=== PATIENT | male | born 2005 | race African-American/Black ===

== ENCOUNTER 2025-03-25 17:32 | Emergency (ER) | payer SELFPAY ==
--- NOTE | ~2025-03-25 | XR_ITS ---
EXAMINATION: XR finger 5th RT min 2V DATE: 03/25/2025 18:14 INDICATION: Right fifth digit pain post injury TECHNIQUE: Dorsal palmar, lateral and oblique views of the right fifth digit were obtained COMPARISON: None FINDINGS: Alignment is normal. No fracture. Joint spaces are normal. Soft tissues are unremarkable. IMPRESSION: 1. Negative right fifth digit radiographs Reviewed, dictated and finalized at location A.
[2025-03-25 17:35] VITALS: BP 124/82; PULSE 106; RESP 18; TEMP 36.6; O2SAT 100
--- NOTE | 2025-03-25 19:21 | ED_ITS ---
HPI - Extremity Injury (Upper) General Chief Complaint: Extremity Injury, Upper Stated Complaint: right pinky injury Time Seen by Provider: 03/25/25 19:10 History of Present Illness HPI narrative: 19-year-old otherwise healthy male presenting with pinky injury while he was at work. Patient jammed his right 5th digit in a shopping cart while he was moving them to the store. Was able to remove his finger without significant delay, having some pain and tenderness along the 5th finger and some restricted range of motion secondary to pain. Did not take anything for pain prior to arrival. No paresthesias. No previous injuries or surgeries. Other complaints. Related Data Allergies Allergy/AdvReac Type Severity Reaction Status Date / Time No Known Allergies Allergy Verified 03/25/25 17:37 Review of Systems Review of Systems: As reviewed above in HPI Exam Narrative: GENERAL: [Well-appearing, well-nourished, and in no acute distress.] HEAD: [Normocephalic, atraumatic.] EYES: [PERRLA and EOMI.] ENT: Nares clear, no rhinorrhea or epistaxis. Mucous membranes moist. NECK: Supple. CHEST: Symmetric chest rise, no labored breathing HEART: Warm extremity, good radial pulses, good cap refill in each digit EXTREMITIES: No swelling or deformity to the pinky. Flexion at the PIP MCP and the IP joint limited secondary to pain but no swelling. No overlying skin discoloration or rashes. No lacerations. No crepitus with palpation. Able to hold extensor mechanism of the pinky without difficulty. SKIN: Warm, dry, no rash. NEURO: [No focal deficits]. Alert and oriented [x3.] Course Vital Signs Vital signs: Vital Signs Temperature 36.6 C 03/25/25 17:35 Pulse Rate 106 H 03/25/25 17:35 Respiratory Rate 18 03/25/25 17:35 Blood Pressure 124/82 03/25/25 17:35 Pulse Oximetry 100 03/25/25 17:35 Oxygen Delivery Room Air 03/25/25 17:35 Temperature 36.6 C 03/25/25 17:35 Pulse Rate 106 H 03/25/25 17:35 Respiratory Rate 18 03/25/25 17:35 Blood Pressure 124/82 03/25/25 17:35 Pulse Oximetry 100 03/25/25 17:35 Oxygen Delivery Room Air 03/25/25 17:35 MDM - Extremity Injury (Upper) MDM Narrative Medical decision making narrative: 19-year-old otherwise healthy male presenting with pinky injury while he was at work. Patient jammed his right 5th digit in a shopping cart while he was moving them to the store. Was able to remove his finger without significant delay, having some pain and tenderness along the 5th finger and some restricted range of motion secondary to pain. Did not take anything for pain prior to arrival. No paresthesias. No previous injuries or surgeries. Other complaints. No swelling or deformity to the pinky. Flexion at the PIP MCP and the IP joint limited secondary to pain but no swelling. No overlying skin discoloration or rashes. No lacerations. No crepitus with palpation. Able to hold extensor mechanism of the pinky without difficulty. Patient likely has finger sprain other than dislocation or fracture. Offered pain medications and analgesia but he declined. Ice pack applied. X-ray obtained and independently reviewed shows no acute abnormality. Patient placed into a finger splint and encouraged to take anti-inflammatories every 6-8 hours for pain and swelling control and discharged with work note. Medical Records Attestation: I reviewed the patient's medical records. Imaging Data Attestation: I personally reviewed and interpreted this imaging study as follows: My impression: Impressions Finger X-Ray 03/25/25 18:56 IMPRESSION: 1. Negative right fifth digit radiographs Discharge Plan Discharge Clinical Impression: Unspecified sprain of right little finger, initial encounter Patient Disposition: Home Condition: Stable Instructions: Antibiotic Form, Hand Sprain (ED) Additional Instructions: X-rays do not show any broken bones or dislocations. Apply ice to the area that is hurting, take 600 mg of ibuprofen every 6 hours, 1000 mg of Tylenol extra- strength every 8 hours. Return with any emergencies. Follow-up with regular doctor. Patient Language: Jordanian Follow-up/Referrals: PHYSICIAN,DIRECTOR PHARMACOLOGY [Primary Care Provider, Internal Medicine] Time of Disposition: 19:24
== END 2025-03-25 19:47 | disposition home or self-care (01) ==
LOC: ANHED 19:26
PROVIDERS: Emergency Provider Student in an Organized Health Care Education/Training Program
DX: S63.616A Unspecified sprain of right little finger, initial encounter (principal); W22.8XXA Striking against or struck by other objects, initial encounter
CPT/HCPCS: 73140; 99283